=== PATIENT | male | born 1935 | race Caucasian/White ===

== ENCOUNTER 2024-01-17 18:52 | Emergency (ER) | payer MEDICARE, OTHER, SELFPAY ==
[2024-01-17 19:00] VITALS: BP 154/79; BMI 29.0
[2024-01-17 20:04] LABS: Urine Albumin Negative (Neg - Trace); Urine Bilirubin Negative (Negative); Urine Character Clear (Clear); Urine Color Yellow; Urine Glucose Negative (Negative); Urine Ketone Negative (Negative); Urine Leukocyte Negative (Negative); Urine Nitrite Negative (Negative); Urine Occult Blood Negative (Negative); Urine Urobilinogen Negative (Neg - 1+)
--- NOTE | 2024-01-17 20:27 | ED.GENMED ---
History of Present Illness
General
Chief Complaint: Bowel Problem
Source: patient
Exam Limitations: none
Time Seen by Provider: 01/17/24 19:47
Travel History
Have you had any contact with someone who has COVID-19?: No
Do you have any symptoms of coronavirus? Fever > 100 degrees, chills, cough, shortness of breath, sore throat, loss of taste or smell, muscle aches, or headache?: No
History of Present Illness
History of Present Illness:
This is a 88 year old male that comes in with c/o constipation. States that he was constipated and he took Miralax at 10am today. States that when he got here he had a BM and feels better at this time. states that he has been constipated on and
off for 2 months. Patient states that he is not a good water drinker. Denies any fever, chills, chest pain, SOB, abd pain, nausea, vomiting, diarrhea, headache, dizziness, urinary burning.
Past History
Past History
ED Past Medical History: HTN, Hypercholesterolemia and Other (Tremors, Hemorrhoids, UTI, History of Hypo and Hyper thyroid now normal. )
ED Past Surgical History: Orthopedic (Bilateral hip replacement) and Other (Cataracts)
Social History
Tobacco: Non-smoker
Alcohol: Occasional
Personal:
Living: with family
Review of Systems
Review of Systems
All Other Systems: ROS reviewed and negative except as documented in HPI and ROS
Constitutional: Reports no symptoms; Denies fever or chills
EENT: Reports no symptoms
Respiratory: Reports no symptoms; Denies cough or trouble breathing
Cardiac: Reports no symptoms; Denies chest pain
ABD/GI: Reports constipated; Denies abdominal pain, nausea, vomiting or diarrhea
: Reports no symptoms; Denies dysuria, frequency or urgency
Musculoskeletal: Reports no symptoms
Skin: Reports no symptoms
Neurological: Reports no symptoms; Denies dizzy or headache
Psychiatric: Reports no symptoms
Phy Exam
General Physical Exam
General Presentation: well appearing and no apparent distress
General age: appears stated age
General Skin: warm and dry
General Habitus: elderly
General Mental: alert
General Hydration: appears well hydrated
ENT Exam
ENT Exam: TM's normal, pharynx normal and neck supple
Eye Exam
Eye Exam: EOMI
Cardiovascular Exam
Cardiovascular Exam: no edema, normal peripheral pulses and irregularly irregular
Pulmonary Exam
Pulmonary Exam: lungs clear, no respiratory distress, no rales, chest non tender, no crackles, no rhonchi, no wheezing and no cough
Gastrointestinal Exam
Gastrointestinal Exam: normal bowel sounds, non tender, soft, no organomegaly, no pulsatile mass and non distended
Musculoskeletal Exam
Musculoskeletal Exam: full ROM and no edema
Skin Exam
Skin Exam: normal color, warm/dry, no rash and no petechia
Psychiatric Exam
Psychiatric Exam: normal mood/affect
Course
Orders/Labs/Results
Orders:
Orders
01/17/24 19:58
Urinalysis Reflex To Culture Urgent
Date Specimen was Collected: 01/17/24
Time Specimen was Collected: 19:56
01/17/24 20:12
EKG [Electrocardiogram (*1)] Urgent
Reason for Study: Abdominal Pain
01/17/24 20:13
EKG- Treatment ONCE
Urine negative for infection.
Vital Signs
Initial and Last Documented VS:
Initial Vital Signs
Temp Pulse Resp BP Pulse Ox
98.0 F 66 20 154/79 96
01/17/24 19:00 01/17/24 19:00 01/17/24 19:00 01/17/24 19:00 01/17/24 19:00
Last Documented Vital Signs
Temp Pulse Resp BP Pulse Ox
98.0 F 66 20 154/79 96
01/17/24 19:00 01/17/24 19:00 01/17/24 19:00 01/17/24 19:00 01/17/24 19:00
MDM/Problems Addressed
Differential Diagnosis Includes:
Constipation.
MDM/Problems Addressed:
This is a 88 year old male that comes in with c/o constipation. Patient to Miralax at 10am and had not gone until he got here. State that he had a BM and is feeling better. States that he was also having difficulty voiding.
Will check urine. ECG done as patient heart sounds were very Irregular. Explained that his urine is negative for infection. Sometimes with constipation this causes difficulty with urination as the stool is obstruction and pushing on the blader.
Patient to increase his water intake. Suggested that her try Prune juice mixed with apple juice in equal amounts and heat and drink daily. Return with any concerns.
Chronic conditions affecting care:
NA
Acute Exacerbation and/or Progression of Chronic Illness:
NA
*Pulse Oximetry
Patient hypoxic: no
*EKG
Interpreted by ED Provider?: Yes
Heart Rate: 96
Rate: normal
Rhythm: sinus and PVC's
[place]: normal axis
Interval: normal interval
QRS Pattern: normal QRS
Ischemia: no ischemia
*Dinking Machine Operator Interpretation
Rate: Dinking Machine Operator- N/A
*Critical Care Note
Total Time (30-74mins, 75-104mins- exclusive of procedures): Not Applicable
ED Attending Note
-
Portions of this chart may have been created with voice recognition software.� Occasional wrong word or��sound alike� substitutions may have occurred due to the inherent limitations of voice recognition software.
Discharge Plan
Departure
Patient Disposition: Home (Routine Discharge)
Date of Disposition: 01/17/24
Time of Disposition: 20:35
Patient with high blood pressure during this ER visit?: Yes
Condition: Good
Covid-19: Not Applicable
Discharge Problem:
Constipation
Instructions: Constipation, Adult (DC), BLOOD PRESSURE
Referrals:
Leatha Francis, [Family Provider] - Call in 1-3 days for appt
Activity Restrictions/Additional Instructions:
As discussed, you have moved your bowels after the Miralax. You may use this daily to help with the constipation. Please increase your water intake to 8-8oz glasses daily. You may also try Prune juice with apple juice in equal amounts and heat and
drink daily.Your urine is negative for infection. IF YOU HAVE ANY OTHER CONCERNS PLEASE RETURN TO THE EMERGENCY ROOM.
Interventions
Interventions:
*Risk Screen - Suicide Last Done: 01/17/24 19:00
*General Assessment Last Done: 01/17/24 19:00
*Neglect/Abuse Screening Last Done: 01/17/24 19:51
ED- Fall Risk Assessment Last Done: 01/17/24 19:51
*ED COVID-19 Vaccine History Last Done: 01/17/24 19:00
SB-Lrzlxu-Tiqvaseohl Assessment Last Done: 01/17/24 19:51
Discharge Date and Time
Print Language: MALTESE
== END 2024-01-17 21:15 | disposition home or self-care (01) ==
LOC: EMR 18:52
PROVIDERS: Clinical Nurse Specialist Family Health; EMERGENCY PHYSICIAN Student in an Organized Health Care Education/Training Program; FAMILY PHYSICIAN Family Medicine
DX: K59.00 Constipation, unspecified (principal); I10 Essential (primary) hypertension
CPT/HCPCS: 99284; 81003; 93005

== ENCOUNTER 2025-08-20 10:19 | Emergency (ER) | payer MEDICARE, OTHER, SELFPAY ==
[2025-08-20 10:21] VITALS: BP 174/86
--- NOTE | 2025-08-20 10:44 | ED.GENMED ---
History of Present Illness
General
Chief Complaint: Bowel Problem
Source: patient
Exam Limitations: none
Time Seen by Provider: 08/20/25 10:34
Nursing documentation reviewed up to this point in time: agreed with
History of Present Illness
History of Present Illness:
89-year-old male with a past medical history as noted presents to the emergency department for evaluation of constipation and urinary issues. Patient reports that earlier this week he was constipated and so Friday, Friday, and Friday he took
MiraLAX; still did not have a bowel movement and so his doctor instructed him to take MiraLAX 3 times on once a day spaced out throughout the day. He says that on Friday he had large volume of liquid stool/diarrhea. Since then he has not had an
additional bowel movement. He denies urge to defecate, denies any abdominal pain or rectal pain. He denies any nausea or vomiting. He has noticed that since episode of liquid stools on Friday he has had urinary issues. He describes increased
urinary frequency and sensation of incomplete emptying. He denies any dysuria or hematuria. He has not had fever or chills. He denies any other acute complaints.
Past History
Past History
ED Past Medical History: HTN, Hypercholesterolemia and Other (Tremors, Hemorrhoids, UTI, History of Hypo and Hyper thyroid now normal. )
ED Past Surgical History: Orthopedic (Bilateral hip replacement) and Other (Cataracts)
Social History
Tobacco: Non-smoker
Alcohol: Occasional
Personal:
Living: with family
Review of Systems
Review of Systems
All Other Systems: ROS reviewed and negative except as documented in HPI and ROS
Constitutional: Denies fever or chills
Respiratory: Denies trouble breathing
Cardiac: Denies chest pain
ABD/GI: Reports diarrhea (Large-volume episode of diarrhea after MiraLAX but generally constipated) and constipated; Denies abdominal pain, nausea or vomiting
: Reports frequency and difficulty voiding; Denies dysuria or flank pain
Musculoskeletal: Denies neck pain or back pain
Neurological: Denies headache
Phy Exam
Physical Exam
Physical Exam:
General: Awake, alert, oriented x3; no acute distress
Head: Normocephalic, atraumatic
Eyes: Conjunctiva normal
Throat: Airway intact, handling secretions
Neck: Trachea midline, supple without meningismus
Lungs: Breathing comfortably with no distress
Heart: Regular rate
Abd: Normal active bowel sounds; abdomen is soft, non distended, nontender
Rectal: No stool noted in the rectal vault, no pain on internal rectal exam, no masses
Neuro: Grossly intact, ambulatory
Skin: Warm and dry
Extremities: Warm and well-perfused
Scores
Heart Failure Risk
Heart Failure Risk Score: Not Applicable
Heart Score for Chest Pain Patients
STEMI patient?: Not applicable
Withdrawal Assessment of Alcohol
Withdrawal Assessment Completed?: Not applicable
Course
Orders/Labs/Results
Orders:
Orders
08/20/25 10:44
Bladder Scan- Treatment ONCE
CR Obstruct Series W/pa Chest Urgent
Comment:
Reason For Exam: constipation
08/20/25 11:22
Urinalysis Reflex To Culture Urgent
Date Specimen was Collected: 08/20/25
Time Specimen was Collected: 11:20
Vital Signs
Initial and Last Documented VS:
Initial Vital Signs
Temp Pulse Resp BP Pulse Ox
36.6 C 95 16 174/86 98
08/20/25 10:21 08/20/25 10:21 08/20/25 10:21 08/20/25 10:21 08/20/25 10:21
Last Documented Vital Signs
Temp Pulse Resp BP Pulse Ox
36.6 C 95 16 174/86 98
08/20/25 10:21 08/20/25 10:21 08/20/25 10:21 08/20/25 10:21 08/20/25 10:53
MDM/Problems Addressed
Differential Diagnosis Includes:
Symptoms could be a case of constipation resulting in urinary retention; patient could have acute urinary retention from enlarged prostate; he could have acute urinary retention or urinary symptoms from UTI possibly triggered by liquid stools on
Friday; lower suspicion that there is a bowel obstruction
MDM/Problems Addressed:
89-year-old male presents for evaluation of urinary symptoms in the setting of recent constipation�constipated all week and took MiraLAX with large volume of liquid stool Friday. No bowel movement since Friday and has had increased urinary
frequency since then with sensation of incomplete emptying. Hypertensive but otherwise normal vitals. Physical exam is as above�notably on rectal exam there is no fecal impaction. Plan to check abdominal x-ray to evaluate stool burden and
evaluate for obstruction although low clinical suspicion for bowel obstruction. Will plan to check bladder scan for urinary retention postvoid. Will send urinalysis. Reassess after the above.
Urinalysis negative for infection. Bladder scan shows no significant amount of postvoid residual volume. His abdominal x-ray shows significant stool burden. Suspect that all of his symptoms are from constipation. Will start on Colace and advised
him to continue taking MiraLAX once daily as well to hopefully help keep his stool regular. Advised to increase fluid intake. Follow-up with his primary doctor. He feels comfortable with this plan. All questions answered.
Acute Exacerbation and/or Progression of Chronic Illness: HTN
*Radiology
Radiology exam reviewed: preliminary read by ED provider and radiology read reviewed
*Pulse Oximetry
SaO2: 98
Oxygen Mode of Delivery: Room air
Patient hypoxic: no (98%)
*Critical Care Note
Total Time (30-74mins, 75-104mins- exclusive of procedures): Not Applicable
Data Reviewed
Source: patient and records
ED Attending Note
-
Portions of this chart may have been created with voice recognition software.� Occasional wrong word or��sound alike� substitutions may have occurred due to the inherent limitations of voice recognition software.
Discharge Plan
Departure
Patient Disposition: Home (Routine Discharge)
Date of Disposition: 08/20/25
Time of Disposition: 11:37
Patient with high blood pressure during this ER visit?: Yes
Discharge Problem:
Constipation
Instructions: Constipation, Adult (DC)
Prescriptions:
New
docusate sodium [Colace] 100 mg capsule
100 mg PO DAILY Qty: 30 0RF
Referrals:
Leatha Francis DO [Family Provider, Family Practice] - Follow up in 5-7 days
Activity Restrictions/Additional Instructions:
Thank you for visiting the Emergency Department at [facility].
1. Please schedule a follow up appointment as directed. Call first thing tomorrow morning to make an appointment.
2. If indicated, please take your medications as instructed and indicated on discharge paperwork.
3. If any of your symptoms do not improve, or persist, or become more severe within 6-12 hours, please return to the emergency department for further care.
4. Please return to the emergency department if you develop a headache, neck pain/stiffness, fever greater than 100.4F, chest pain, shortness of breath, persistent nausea, vomiting, slurred speech, difficulty walking, numbness/tingling, weakness,
signs of infection or any other symptoms that are worrisome to you.
Please call [phone] if you have any questions.
Interventions
Interventions:
*Risk Screen - Suicide Last Done: 08/20/25 10:21
*General Assessment Last Done: 08/20/25 10:25
*Neglect/Abuse Screening Last Done: 08/20/25 10:25
*ED COVID-19 Vaccine History Last Done: 08/20/25 11:07
*ED Influenza Vaccine History Last Done: 08/20/25 11:07
Discharge Date and Time
Print Language: SENEGALESE
[2025-08-20 11:15] VITALS: BP 140/80
[2025-08-20 11:31] VITALS: BMI 27.8
[2025-08-20 11:32] LABS: Urine Character Clear (Clear)
== END 2025-08-20 12:10 | disposition home or self-care (01) ==
LOC: EMR 10:19
PROVIDERS: EMERGENCY PHYSICIAN Emergency Medicine; FAMILY PHYSICIAN Family Medicine
DX: K59.00 Constipation, unspecified (principal); I10 Essential (primary) hypertension; E78.00 Pure hypercholesterolemia, unspecified
CPT/HCPCS: 99284; 74022; 81003